=== PATIENT | female | born 1955 | race Caucasian/White ===

== ENCOUNTER 2016-08-01 13:48 | Outpatient (CLI) | payer MEDICARE, OTHER ==
[2016-08-01] MEDS ORDERED: IOPAMIDOL-300 100 ML VIAL IVP ONE (14:08)
== END 2016-08-01 13:49 | disposition home or self-care (01) ==
DX: D17.4 Benign lipomatous neoplasm of intrathoracic organs (principal); J43.9 Emphysema, unspecified
CPT/HCPCS: 36415; 71260; 80053; 85025; Q9967

== ENCOUNTER 2017-12-21 09:15 | Outpatient (CLI) | payer MEDICARE, OTHER ==
--- NOTE | 2017-12-21 11:08 | CT Report ---
Reason: NICOTINE ABUSE/DEPENDENCE Procedure Date: 12/21/2017 Accession Number: [id number] / [id number] Procedure: CT - Chest/Lung Screen Low Dose W/O CPT Code: FULL RESULT: EXAM CT LUNG SCREEN EXAM DATE: 12/21/2017 09:28 AM. HISTORY: 62-year-old patient with 69-ybar-elyd smoking history. Currently smoking: Yes. COMPARISON: 08/01/2016. TECHNIQUE: CT examination of the entire thorax without contrast was performed using low-dose technique. Thin section coronal, axial, sagittal and MIP axial images were obtained. In accordance with CT protocol optimization, one or more of the following dose reduction techniques were utilized for this exam: automated exposure control, adjustment of mA and/or KV based on patient size, or use of iterative reconstructive technique. FINDINGS: Nodules: Right upper lobe: New tree-in-bud nodularity image 48 series 4, 4 mm. Stable 3 mm nodule image 47 series 4, retrospectively identified on the prior study. Right middle lobe: None. Right lower lobe: None. Left upper lobe: Anterior peripheral 3 mm nodule on image 54 series 4, questionably present on previous exam retrospectively. 4 mm anterior left upper lobe nodule on image 55 series 4, new. Left lower lobe: None. Emphysema: Bilateral emphysematous changes, similar to 2017. Pleura: Stable right-sided lipoma protruding into a fissure. Aorta: Atherosclerotic without aneurysm. Mediastinum: Unremarkable. Coronary calcifications: Present. Other pulmonary findings: Previously seen right middle lobe atelectasis/scarring is decreased. Other extrapulmonary findings: None. IMPRESSION: Lung-RADS ASSESSMENT CATEGORY: 2 - benign appearance or behavior. Probability of malignancy: Less than 1% RECOMMENDATION: Recommended follow up based on Lung-RADS guidelines. Continued annual low-dose screening CT. RADIA
== END 2017-12-21 09:16 | disposition home or self-care (01) ==
LOC: DI 09:15
PROVIDERS: ATTEND Family Medicine
DX: F17.210 Nicotine dependence, cigarettes, uncomplicated (principal)

== ENCOUNTER 2018-09-30 07:29 | Outpatient (CLI) | payer MEDICARE, OTHER ==
[2018-09-30 12:34] LABS: BASOPHILS % (AUTO) 0.8 %; EOSINOPHILS # (AUTO) 0.1 10^3/uL (0.0-0.7); EOSINOPHILS % (AUTO) 1.7 %; LYMPHOCYTES # (AUTO) 2.7 10^3/uL (1.5-3.5); LYMPHOCYTES % (AUTO) 50.9 %; MEAN CORPUSCULAR HEMOGLOBIN 31.9 pg (27.0-31.0); MEAN CORPUSCULAR HGB CONC 32.7 g/dL (32.0-36.0); MEAN CORPUSCULAR VOLUME 97.8 fL (81.0-99.0); MEAN PLATELET VOLUME 11.4 fL (7.9-10.8); MONOCYTES # (AUTO) 0.4 10^3/uL (0.0-1.0); MONOCYTES % (AUTO) 7.6 %; NEUTROPHILS % (AUTO) 38.8 %; PLT - PLATELET COUNT 158 10^3/uL (130-450); RED BLOOD COUNT 5.01 10^6/uL (4.20-5.40); RED CELL DISTRIBUTION WIDTH 13.4 % (12.0-15.0); WHITE BLOOD COUNT 5.2 x10^3/uL (4.8-10.8)
[2018-09-30 12:57] LABS: ALBUMIN/GLOBULIN RATIO 1.4 (1.0-2.2); ALKALINE PHOSPHATASE 69 IU/L (42-121); ALT ALANINE AMINOTRANSFERASE 18 IU/L (10-60); AST ASPARTATE AMINOTRANSFERASE 19 IU/L (10-42); BUN - BLOOD UREA NITROGEN 19 mg/dL (6-20); CALCIUM 9.1 mg/dL (8.5-10.3); CARBON DIOXIDE - CO2 26 mmol/L (21-32); CHLORIDE 109 mmol/L (101-111); CHOL/HDL RATIO 5.2 (<4.4); CHOLESTEROL 219 mg/dL; CREATININE 0.8 mg/dL (0.4-1.0); GFR - MDRD 73 (>89); GLUCOSE 86 mg/dL (70-100); HDL CHOLESTEROL 42 mg/dL; LDL CHOLESTEROL,CALCULATED 130 mg/dL; LDL/HDL RATIO 3.1 (<4.4); SODIUM 143 mmol/L (135-145); TOTAL PROTEIN 6.9 g/dL (6.7-8.2); VLDL CHOLESTEROL 47 mg/dL
== END 2018-09-30 23:59 | disposition home or self-care (01) ==
LOC: LAB.WCP 07:29
PROVIDERS: ATTEND Family Medicine
DX: I10 Essential (primary) hypertension (principal); E78.5 Hyperlipidemia, unspecified
CPT/HCPCS: 36415; 80053; 80061; 83721; 84443; 85025

== ENCOUNTER 2022-02-11 08:26 | Outpatient (CLI) | payer MEDICARE, OTHER ==
--- NOTE | 2022-02-11 11:15 | DEXA Report ---
PROCEDURE: Dexa Spine and/or Hip INDICATIONS: POST MENOPAUSAL, SMOKER TECHNIQUE: Dual energy x-ray absorptiometry (DXA) was performed on a [employer] System. Regions measur ed are the AP Spine, femoral neck, and if needed forearm. COMPARISON: None. FINDINGS: Lumbar Spine: Bone Mineral Density 1.073 g/cm/cm,T score -0.9, normal Left Hip: Bone Mineral Density 0.766 g/cm/cm,T score -1.9, osteopenia Left Femoral Neck: Bone Mineral Density 0.702 g/cm/cm, T score -2.4, osteopenia (T score greater or equal to -1.0: NORMAL) (T score from -1.1 to -2.4: OSTEOPENIA) (T score less than or equal to -2.5 to: OSTEOPOROSIS) Impression: Osteopenia. Patients with diagnosis of osteoporosis or osteopenia should have regular bone mineral density assess ment. For those eligible for Medicare, routine testing is allowed once every 2 years. Testing frequ ency can be increased for patients who have rapidly progressing disease or for those who are receivin g medical therapy to restore bone mass. Reviewed by: Oumar Cazares MD on 02/11/2022 11:14 AM PST Approved by: Oumar Cazares MD on 02/11/2022 11:14 AM PST Station ID: [id number]
--- NOTE | 2022-02-11 12:51 | CT Report ---
PROCEDURE: Low Dose Lung Cancer Screen INDICATIONS: POST MENOPAUSAL, SMOKER TECHNIQUE: Noncontrast low-dose axial images were acquired from the pulmonary apices to the posterior costophren ic angles. Multiplanar MIP reformats were then reconstructed. For radiation dose reduction, the follo wing was used: automated exposure control, adjustment of mA and/or kV according to patient size. COMPARISON: None. FINDINGS: Image quality: Excellent. Lungs and pleura: The lungs have centrilobular emphysematous changes. There is a right-sided rib def ormity with adjacent pleural thickening which appears posttraumatic from a remote injury. A 2 mm nodu le in the right lower lobe posteriorly series 6 image 125 and in the left upper lobe anterolaterally series 6 image 56 Mediastinum: Heart size is normal. No pericardial effusion. Coronary artery calcifications. No med iastinal adenopathy by size criteria. Thoracic aorta and central pulmonary arteries are normal in si ze. Esophagus is normal in caliber. No hiatal hernia. Bones and chest wall: No suspicious bony lesions. No vertebral body compression fractures. No axil mauricio or supraclavicular adenopathy by size criteria. The thyroid is normal in size and there are no incidental findings. Abdomen: Visualized upper abdomen solid organs and bowel loops appear normal in the absence of contr ast. IMPRESSION: 1. Stable tiny nodules as above. 2. Centrilobular emphysema. 3. Coronary artery calcifications. Lung-RADS 2: Very low likelihood of becoming clinically active CA due to size or lack of growth, con tinue annual screening in 12 months. Reviewed by: Dakota Galindo on 02/11/2022 12:50 PM PST Approved by: Dakota Galindo on 02/11/2022 12:50 PM PST Station ID: [id number]
== END 2022-02-11 08:27 | disposition home or self-care (01) ==
LOC: DI 08:26
PROVIDERS: ATTEND Nurse Practitioner Family
DX: Z12.2 Encounter for screening for malignant neoplasm of respiratory organs (principal); R91.8 Other nonspecific abnormal finding of lung field; J43.9 Emphysema, unspecified; I25.10 Atherosclerotic heart disease of native coronary artery without angina pectoris; M85.89 Other specified disorders of bone density and structure, multiple sites; F17.210 Nicotine dependence, cigarettes, uncomplicated; Z78.0 Asymptomatic menopausal state

== ENCOUNTER 2022-03-14 19:35 | Outpatient (CLI) | payer MEDICARE, OTHER | END 2022-03-14 19:36 | disposition short-term general hospital (02) | LOC: EMS 19:35 | DX: R06.02 Shortness of breath (principal); R05.9 Cough, unspecified | CPT/HCPCS: A0425; A0429; A0888 ==

== ENCOUNTER 2023-11-16 15:11 | Outpatient (CLI) | payer MEDICARE, OTHER | END 2023-11-16 23:59 | disposition short-term general hospital (02) | LOC: EMS 15:11 | PROVIDERS: ATTEND Emergency Medicine | DX: R55 Syncope and collapse (principal) | CPT/HCPCS: A0425; A0427 ==